=== PATIENT | female | born 1970 | race Caucasian/White ===

== ENCOUNTER 2018-04-10 13:58 | Emergency (ER) | END 2018-04-10 17:26 | disposition home or self-care (01) ==

== ENCOUNTER 2018-04-13 18:48 | Emergency (ER) | END 2018-04-13 18:57 | disposition home or self-care (01) ==

== ENCOUNTER 2018-04-26 12:20 | Emergency (ER) | END 2018-04-26 13:18 | disposition home or self-care (01) ==